=== PATIENT | male | born 1960 | race Caucasian/White ===

== ENCOUNTER 2024-10-29 08:40 | Emergency (ER) | payer BC ==
[2024-10-29 08:47] VITALS: BP 171/109; PULSE 65; RESP 20; TEMP 98; BMI 29.8
[2024-10-29 10:27] LABS: BASO % 0.6 % (0-2.0); EOS % 1.5 % (0-4.5); HEMATOCRIT 47.5 % (35.4-49); HEMOGLOBIN 16.3 GM/dL (11.7-16.9); MCH 32.9 pg (25.7-33.7); MCHC 34.4 g/dl (32.0-35.9); MEAN CELL VOLUME 95.7 fl (80-96); MEAN PLT VOLUME 7.1 fl (7.5-11.1); MONO % 10.3 % (3.8-10.2); NEUT % 60.6 % (42.8-82.8); PLATELET COUNT 196 10^3/uL (134-434); RBC 4.96 M/mm3 (4.00-5.60); WHITE BLOOD COUNT 5.6 K/mm3 (4.0-10.0)
[2024-10-29 10:46] LABS: CHLORIDE 108 mmol/L (98-107); POTASSIUM 3.9 mmol/L (3.5-5.1); SODIUM 140 mmol/L (136-145)
[2024-10-29 10:48] LABS: ALBUMIN 3.9 g/dl (3.4-5.0); ANION GAP 6 mmol/L (4-13); CO2 26 mmol/L (21-32); GLUCOSE,RANDOM 102 mg/dL (74-106)
[2024-10-29 10:49] LABS: BLOOD UREA NITROGEN 10.6 mg/dL (7-18)
[2024-10-29 10:52] LABS: CREATININE 0.7 mg/dL (0.55-1.3); SGOT/AST 15 U/L (15-37)
[2024-10-29 10:53] LABS: BILIRUBIN,TOTAL 1.6 mg/dL (0.2-1); SGPT/ALT 15 U/L (13-61)
[2024-10-29 10:54] LABS: TOT PROT 6.5 g/dl (6.4-8.2)
[2024-10-29 10:55] LABS: ALK PHOS 67 U/L (45-117)
[2024-10-29] MEDS ORDERED: LORazepam 1 MG TABLET ONE (11:08)
[2024-10-29] MEDS: LORazepam 1 MG TABLET PO ONE (11:09)
== END 2024-10-29 14:18 | disposition home or self-care (01) ==
LOC: JER 08:40
DX: F41.8 Other specified anxiety disorders (principal)
CPT/HCPCS: 36415; 80053; 80307; 84484; 85025; 93005; 93010; 99284-25

== ENCOUNTER 2024-10-30 08:36 | Emergency (ER) | payer BC ==
[2024-10-30] MEDS ORDERED: LORazepam 0.5 MG TABLET ONE (08:44)
[2024-10-30 08:56] VITALS: BP 144/99; PULSE 77; RESP 20; TEMP 97.4; BMI 29.5
[2024-10-30] MEDS: LORazepam 1 MG TABLET PO ONE (09:00)
== END 2024-10-30 10:52 | disposition home or self-care (01) ==
LOC: FER 08:36
DX: F41.9 Anxiety disorder, unspecified (principal)
CPT/HCPCS: 99283-25

== ENCOUNTER 2024-12-17 11:11 | Emergency (ER) | payer BC ==
[2024-12-17 11:20] VITALS: TEMP 98.2; BMI 28.5
[2024-12-17 12:33] LABS: ABSOLUTE IMMATURE GRANULOCYTES 0.01 x10^3/uL (0.0-0.031); BASOPHILS # 0.04 x10^3/uL (0.01-0.08); EOSINOPHIL % 0.8 % (0.8-7.0); EOSINOPHILS # 0.05 x10^3/uL (0.04-0.54); HEMATOCRIT 47.2 % (40.1-51.0); HEMOGLOBIN 16.4 g/dL (13.7-17.5); MCHC 34.7 g/dl (32.3-36.5); MEAN CELL VOLUME 93.3 fl (79.0-92.2); MEAN PLT VOLUME 9.4 fl (9.4-12.4); MONOCYTE # 0.59 x10^3/uL (0.30-0.82); PLATELET COUNT 175 x10^3/uL (163-337); RDW 13.2 % (12.2-16.4)
[2024-12-17 12:54] LABS: ALBUMIN 4.5 g/dl (3.4-5.0); ALK PHOS 57 U/L (45-117); ANION GAP 11 mmol/L (4-13); BILIRUBIN,TOTAL 0.8 mg/dl (0.2-1); CALCIUM 9.3 mg/dl (8.5-10.1); CHLORIDE 105 mmol/L (98-107); CO2 23 mmol/L (21-32); CREATININE 0.8 mg/dl (0.6-1.3); GLUCOSE,RANDOM 93 mg/dl (74-106); MAGNESIUM 1.9 mg/dL (1.8-2.4); POTASSIUM 3.9 mmol/L (3.5-5.1); SGOT/AST 18 U/L (15-37); SGPT/ALT 19 U/L (7-52); SODIUM 139 mmol/L (136-145); TOT PROT 6.6 g/dl (6.4-8.2)
[2024-12-17 13:37] VITALS: BP 140/101; PULSE 99; RESP 18
== END 2024-12-17 14:08 | disposition left against medical advice (07) ==
LOC: FER 11:11
DX: F10.939 Alcohol use, unspecified with withdrawal, unspecified (principal); F41.9 Anxiety disorder, unspecified; R25.1 Tremor, unspecified; R00.0 Tachycardia, unspecified; F32.A Depression, unspecified; Z63.4 Disappearance and death of family member
CPT/HCPCS: 36415; 80053; 80307; 83735; 85025; 93005; 99284-25

== ENCOUNTER 2024-12-19 14:02 | Emergency (ER) | payer BC ==
[2024-12-19 14:13] VITALS: BP 153/95; PULSE 113; RESP 18; TEMP 98.1; BMI 29.1
[2024-12-19] MEDS ORDERED: diazePAM 5 MG TABLET ONE (15:29)
[2024-12-19] MEDS: diazePAM 5 MG TABLET PO ONE (15:52)
== END 2024-12-19 16:25 | disposition home or self-care (01) ==
LOC: JER 14:02
DX: F10.939 Alcohol use, unspecified with withdrawal, unspecified (principal); R45.1 Restlessness and agitation; R25.1 Tremor, unspecified; R00.0 Tachycardia, unspecified; F41.9 Anxiety disorder, unspecified; F32.A Depression, unspecified
CPT/HCPCS: 99283-25

== ENCOUNTER 2025-02-09 07:15 | Day surgery (SDC) | payer BC ==
[2025-02-09 08:47] VITALS: BMI 31.4
[2025-02-09] MEDS ORDERED: KETAMINE HCL 100 MG/ML - 5ML VIAL ONE (11:16)
[2025-02-09] MEDS ORDERED: KETOROLAC TROMETHAMINE 30 MG/1 ML VIAL ONE (11:19)
[2025-02-09] MEDS ORDERED: LIDOCAINE HCL 2% 100 MG/5 ML DISP.SYRIN ONE (11:19)
[2025-02-09] MEDS ORDERED: ONDANSETRON 4 MG/2 ML VIAL ONE (11:24)
[2025-02-09] MEDS ORDERED: PROPOFOL 20 ML ONE (11:32)
[2025-02-09 12:42] VITALS: RESP 18; TEMP 98
[2025-02-09 14:29] VITALS: BP 149/91; PULSE 84
== END 2025-02-09 13:20 | disposition home or self-care (01) ==
LOC: FECT 07:15
PROVIDERS: ATTEND Student in an Organized Health Care Education/Training Program
PROC: GZB4ZZZ Other Electroconvulsive Therapy (ICD-10-PCS; principal; 2025-02-09 11:26)
DX: F32.A Depression, unspecified (principal)
CPT/HCPCS: 90870; 94760

== ENCOUNTER 2025-02-12 11:57 | Day surgery (SDC) | payer BC ==
[2025-02-09 11:51] VITALS: BMI 31.3
[2025-02-12] MEDS ORDERED: KETAMINE HCL 100 MG/ML - 5ML VIAL ONE (14:05)
[2025-02-12] MEDS ORDERED: ETOMIDATE 20 MG/10 ML VIAL IVPUSH ONE (14:08)
[2025-02-12 15:36] VITALS: TEMP 98.5
[2025-02-12 15:40] VITALS: BP 136/82; PULSE 92; RESP 16
== END 2025-02-12 15:25 | disposition home or self-care (01) ==
LOC: FECT 11:57
PROVIDERS: ATTEND Student in an Organized Health Care Education/Training Program
PROC: GZB4ZZZ Other Electroconvulsive Therapy (ICD-10-PCS; principal; 2025-02-12 13:30)
DX: F32.A Depression, unspecified (principal)
CPT/HCPCS: 90870; 94760

== ENCOUNTER 2025-02-19 08:57 | Day surgery (SDC) | payer BC ==
[2025-02-17 14:01] VITALS: BMI 31.3
[2025-02-19] MEDS ORDERED: KETAMINE HCL 100 MG/ML - 5ML VIAL ONE (11:15)
[2025-02-19] MEDS ORDERED: MIDAZOLAM HCL 2 MG/2 ML SINGLE DOSE VIAL ONE (11:49)
[2025-02-19] MEDS: MIDAZOLAM HCL 2 MG/2 ML SINGLE DOSE VIAL IVPUSH ONE (11:50)
[2025-02-19 12:14] VITALS: RESP 16
[2025-02-19 13:11] VITALS: TEMP 98.2
[2025-02-19 13:21] VITALS: BP 139/82; PULSE 80
== END 2025-02-19 13:58 | disposition home or self-care (01) ==
LOC: FECT 08:57
PROVIDERS: ATTEND Student in an Organized Health Care Education/Training Program
PROC: GZB4ZZZ Other Electroconvulsive Therapy (ICD-10-PCS; principal; 2025-02-19 11:25)
DX: F32.A Depression, unspecified (principal)
CPT/HCPCS: 90870; 94760

== ENCOUNTER 2025-02-25 09:40 | Day surgery (SDC) | payer BC ==
[2025-02-19 17:12] VITALS: BMI 31.3
[2025-02-25] MEDS ORDERED: KETAMINE HCL 100 MG/ML - 5ML VIAL ONE ×2 (11:56→12:11)
[2025-02-25] MEDS ORDERED: ETOMIDATE 20 MG/10 ML VIAL IVPUSH ONE (12:23)
[2025-02-25 13:56] VITALS: RESP 18
[2025-02-25 13:59] VITALS: BP 133/76; PULSE 89; TEMP 98
== END 2025-02-25 13:40 | disposition home or self-care (01) ==
LOC: FECT 09:40
PROVIDERS: ATTEND Student in an Organized Health Care Education/Training Program
PROC: GZB4ZZZ Other Electroconvulsive Therapy (ICD-10-PCS; principal; 2025-02-25 12:31)
DX: F32.A Depression, unspecified (principal)
CPT/HCPCS: 90870; 94760